=== PATIENT | female | born 1930 | race Two or more races ===

== ENCOUNTER 2018-09-07 09:46 | Emergency (ER) | payer OTHER ==
[~2018-09-07] VITALS: Ht 157.5 cm; Wt 61.7 kg
[2018-09-07] MEDS ORDERED: SIMVASTATIN40 MG (09:56)
[2018-09-07] MEDS ORDERED: TENORMIN50 M1 (09:56)
[2018-09-07] MEDS ORDERED: OMEPRAZOLE20 M1 (09:56)
== END 2018-09-07 11:53 | disposition home or self-care (01) ==
LOC: ER 09:46
DX: T50.991A Poisoning by other drugs, medicaments and biological substances, accidental (unintentional), initial encounter (principal); R53.81 Other malaise; Y92.89 Other specified places as the place of occurrence of the external cause